=== PATIENT | male | born 1975 | race Caucasian/White ===

== ENCOUNTER 2017-08-21 19:45 | Emergency (ER) | payer BC ==
[~2017-08-21] VITALS: Ht 193 cm; Wt 87.4 kg
[~2017-08-21 19:45] MED LIST: AMOX500C3 PO; HYDR-4079 PO
[2017-08-21 19:50] VITALS: TEMP 36.6; Ht 193 cm; Wt 87.4 kg
--- NOTE | 2017-08-21 21:08 | DIAGNOSTIC IMAGING REPORT ---
RIGHT HAND MIN 3 VIEWS ROUTINE CLINICAL HISTORY: Right hand/second finger pain. COMPARISON: None. DISCUSSION: No acute fractures or dislocations are visualized. There is no erosive disease. There is an old healed fifth metacarpal fracture. IMPRESSION: Old fifth metacarpal fracture. No acute fractures. Electronically signed by: Dave Raya M.D. 08/21/2017 9:06 PM Dictated Date/Time: 08/21/2017 9:05 PM
[2017-08-21 21:32] VITALS: BP 135/95; PULSE 86; O2SAT 92
--- NOTE | 2017-08-22 01:08 | EMERGENCY ROOM VISIT NOTE ---
History First contact with patient: 21:11 Chief Complaint: FINGER PAIN Stated Complaint: PAIN RIGHT SECOND FINGER ON R HAND History of Present Illness The patient is a 41 year old male who presents to the Emergency Room with complaints of persistent right second finger pain. The patient reports that he has had this intermittent discomfort for the past 2 months. He has not followed up with his PCP or orthopedics. 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 He denies any known injury to the hand. He denies any loss of flexor or extensor function, except for chronic changes that he has had as a result of a surgery to his right forearm after sustaining a significant laceration, muscle and tendon injury that was repaired at [facility]. He rates his discomfort a 6 out of 10. The patient is [id number]. Review of Systems 10 system review was performed and was negative except for pertinent positives and negatives as indicated in history of present illness Past Medical/Surgical History Medical Problems: (1) No Known Active Medical Problems Medical Problems: (1) Chronic sinusitis (2) Kidney stones (3) Tobacco Use Disorder Surgical Problems: (1) History of orthopedic surgery Family History FH: cancer FH: hypertension FH: kidney disease FH: lung disease Social History Smoking Status: Never Smoker Alcohol Use: occasionally Marital Status: in relationship Housing Status: lives with significant other Occupation Status: employed Current/Historical Medications No Active Prescriptions or Reported Meds Physical Exam Vital Signs Date Time Temp Pulse Resp B/P (MAP) Pulse Ox O2 Delivery O2 Flow Rate FiO2 08/21/17 21:32 86 18 135/95 92 08/21/17 19:50 36.6 86 18 142/104 97 Room Air Pain Rating (0-10): 0 Physical Exam CONSTITUTIONAL: Healthy and well nourished. Alert and oriented X 3 with positive affect. HEENT: Normocephalic, atraumatic. Pupils equal, round and reactive. NECK: Full active range of motion without discomfort. MUSCULOSKELETAL: Examination of the right hand shows mild tenderness to palpation over the dorsal second MCP joint. No erythema noted. The patient is able to flex and extend the finger with full range of motion. He has no tenderness to palpation through the flexor surface, palm or wrist. No palpable masses noted or slowly. Capillary refill of the fingertip is less than 2 seconds. INTEGUMENTARY: No rash or other significant dermatologic conditions noted. NEUROLOGIC: Right index finger is sensory intact. Medical Decision & Procedures ER Provider Diagnostic Interpretation: My interpretation of right hand x-rays does not show any obvious fractures, dislocation or erosive changes of the second finger or MCP joint. An old fifth metacarpal fracture is noted. Radiologist report is as follows: RIGHT HAND MIN 3 VIEWS ROUTINE CLINICAL HISTORY: Right hand/second finger pain. COMPARISON: None. DISCUSSION: No acute fractures or dislocations are visualized. There is no erosive disease. There is an old healed fifth metacarpal fracture. IMPRESSION: Old fifth metacarpal fracture. No acute fractures. ED Course Patient history and physical exam were performed. Nurse's notes were reviewed. Vital signs were reviewed and were normal. X-rays of the right hand were also normal. A metal splint was applied to the finger, and the patient was encouraged to follow-up with [facility] for further reevaluation and management. He was encouraged to alternate ibuprofen and Tylenol as needed for pain, as well as intermittent application of ice. The patient voiced understanding of all discharge instructions, was happy with plan of care, and rated his pain a 4 out of 10 at the conclusion of my exam. Medical Decision Medication Reconcilliation Current Medication List: was personally reviewed by me Blood Pressure Screening Patient's blood pressure: Normal blood pressure Impression Primary Impression: Right index finger tendonitis Departure Information Dispostion Home / Self-Care Condition GOOD Prescriptions No Active Prescriptions or Reported Meds Referrals Caden Hwang M.D. Forms HOME CARE DOCUMENTATION FORM, IMPORTANT VISIT INFORMATION Patient Instructions My [facility] Additional Instructions Intermittently apply ice to the finger. Wear metal splint and/or faviola tape her second and third fingers together for support. Ibuprofen or Tylenol as needed for pain. Follow-up with [facility] for further reevaluation and management - call for an appointment.
== END 2017-08-21 21:33 | disposition home or self-care (01) ==
LOC: C.EDB 19:47 → C.EDD 21:33
DX: M77.9 Enthesopathy, unspecified (principal); F17.200 Nicotine dependence, unspecified, uncomplicated; J32.9 Chronic sinusitis, unspecified; Z87.442 Personal history of urinary calculi; Z82.49 Family history of ischemic heart disease and other diseases of the circulatory system

== ENCOUNTER 2018-02-10 22:20 | Emergency (ER) | payer BC ==
[~2018-02-10] VITALS: Ht 193 cm; Wt 90.5 kg
[2018-02-10 22:24] VITALS: TEMP 37; Ht 193 cm; Wt 90.5 kg
[2018-02-10] MEDS ORDERED: ACETAMINOPHEN 500 MG TAB PO STA (22:39)
--- NOTE | 2018-02-10 23:06 | DIAGNOSTIC IMAGING REPORT ---
HEAD CT NONCONTRAST CT DOSE: 537.48 mGy.cm HISTORY: head injury TECHNIQUE: Multiaxial CT images of the head were performed without the use of intravenous contrast. Automated exposure control was utilized for this study. A dose lowering technique was utilized adhering to the principles of ALARA. Comparison: None. Findings: The paranasal sinuses and mastoid air cells are clear. The calvarium and skull base are intact. The ventricles and sulci are within normal limits. There is no mass, hematoma, midline shift, or acute infarct. Impression: No acute intracranial abnormality. Electronically signed by: Judson Mcdonald M.D. 02/10/2018 11:05 PM Dictated Date/Time: 02/10/2018 10:57 PM
--- NOTE | 2018-02-11 00:28 | EMERGENCY ROOM VISIT NOTE ---
History Report prepared by Caridad: Lennie Calderón Under the Supervision of: Dr. Rush Soto D.O. 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 The patient presents to the ED by EMS. He was installing a swing in his bedroom when he was flung backwards. He fell back about 3 feet and hit his head on the floor. He did not lose consciousness. He notes headache, dizziness, and neck pain. He currently rates his discomfort as a 12/10 in severity. He denies having any medical problems. He admits to drinking some alcohol today. Source of History: patient Onset: OPERATIONS COORDINATOR Position: head Symptom Intensity: 12/10 Quality: other (injury) Timing: other (episodic) Associated Symptoms: + headache, + neck pain, No LOC Note: Pt reports dizziness. Review of Systems See HPI for pertinent positives & negatives. A total of 10 systems reviewed and were otherwise negative. Past Medical & Surgical Medical Problems: (1) Chronic sinusitis (2) Kidney stones (3) Tobacco Use Disorder Surgical Problems: (1) History of orthopedic surgery Family History FH: cancer FH: hypertension FH: kidney disease FH: lung disease Social History Smoking Status: Never Smoker Alcohol Use: occasionally Marital Status: in relationship Housing Status: lives with significant other Occupation Status: employed Current/Historical Medications No Active Prescriptions or Reported Meds Allergies Coded Allergies: Bee Venom (Verified Allergy, Unknown, ANAPHYLAXIS, 09/06/16) Physical Exam Vital Signs Date Time Temp Pulse Resp B/P (MAP) Pulse Ox O2 Delivery O2 Flow Rate FiO2 02/10/18 22:24 37.0 94 16 157/92 96 Room Air 02/10/18 22:24 91 Physical Exam CONSTITUTIONAL/VITAL SIGNS: Reviewed / noted above. GENERAL: Non-toxic in appearance. INTEGUMENTARY: Warm, dry, and [place]. HEAD: Normocephalic. EYES: without scleral icterus or trauma. ENT/OROPHARYNX: clear and moist. LYMPHADENOPATHY/NECK: Is supple without lymphadenopathy or meningismus. RESPIRATORY: Lungs clear and equal. CARDIOVASCULAR: Regular rate and rhythm. GI/ABDOMEN: Soft and nontender. No organomegaly or pulsatile mass. No rebound or guarding. Normal bowel sounds. EXTREMITIES: Warm and well perfused. BACK: No CVA tenderness. NEUROLOGICAL: Intact without focal deficits. PSYCHIATRIC: normal affect. MUSCULOSKELETAL: Normally developed with good muscle tone. Medical Decision & Procedures ER Provider Diagnostic Interpretation: Radiology results as stated below per my review and radiologist interpretation: HEAD CT NONCONTRAST CT DOSE: 537.48 mGy.cm HISTORY: head injury TECHNIQUE: Multiaxial CT images of the head were performed without the use of intravenous contrast. Automated exposure control was utilized for this study. A dose lowering technique was utilized adhering to the principles of ALARA. Comparison: None. Findings: The paranasal sinuses and mastoid air cells are clear. The calvarium and skull base are intact. The ventricles and sulci are within normal limits. There is no mass, hematoma, midline shift, or acute infarct. Impression: No acute intracranial abnormality. Electronically signed by: Judson Mcdonald M.D. 02/10/2018 11:05 PM Dictated Date/Time: 02/10/2018 10:57 PM Medications Administered Medications (Trade) Dose Ordered Sig/Jacobo Route Start Time Stop Time Status Last Admin Dose Admin Acetaminophen (Tylenol Tab) 1,000 mg NOW STAT PO 02/10/18 22:39 02/10/18 22:40 DC 02/10/18 23:05 1,000 MG ED Course 2235: Previous medical records were reviewed. The patient was evaluated in room C11B. A complete history and physical examination was performed. 2239: Acetaminophen 1000 mg PO. 0028: On reevaluation, the patient is resting comfortably. I discussed the results and findings with the patient. He verbalized agreement of the treatment plan. He was discharged home. Medical Decision Differential includes close head injury, intracranial bleed, facial trauma, cervical spine trauma, chest and thoracic trauma, abdominal and intra-abdominal trauma, spine neurologic trauma, extremity trauma. This is a 42-year-old male who presents to the ED with a chief complaint of head injury. The patient was hanging a "sex swing" in his bedroom when he pulled on it to see if it was secure. He states that it let loose and caused him to fall onto the ground striking his head. The patient has been drinking some alcohol tonight he denies any other significant symptoms. CT scan of the brain did not show acute process. The patient was told the results. He was given Tylenol p.o. He is felt to be stable for discharge. Head Trauma GCS Score: 15 Medication Reconcilliation Current Medication List: was personally reviewed by me Blood Pressure Screening Patient's blood pressure: Elevated blood pressure Blood pressure disposition: Elevated BP felt to be situational Impression Primary Impression: Head injury due to trauma Scribe Attestation The scribe's documentation has been prepared under my direction and personally reviewed by me in its entirety. I confirm that the note above accurately reflects all work, treatment, procedures, and medical decision making performed by me. Departure Information Dispostion Home / Self-Care Prescriptions No Active Prescriptions or Reported Meds Referrals No Doctor, Assigned (PCP) Patient Instructions ED Head Injury Closed, My [facility] Additional Instructions Follow-up with your doctor for further care and evaluation in 1-2 days if symptoms persist. Return to the emergency department for worsening or new symptoms or any concerns. You have been examined and treated today on an emergency basis only. This is not a substitute for, or an effort to provide, complete comprehensive medical care. It is impossible to recognize and treat all injuries or illnesses in a single emergency department visit. It is therefore important that you follow up closely with your doctor. Call as soon as possible for an appointment.
[2018-02-11 00:33] VITALS: BP 137/89; PULSE 88; O2SAT 96
== END 2018-02-11 00:34 | disposition home or self-care (01) ==
LOC: EDBD 22:20 → C.EDC 22:21
DX: S09.90XA Unspecified injury of head, initial encounter (principal); W18.39XA Other fall on same level, initial encounter; W22.8XXA Striking against or struck by other objects, initial encounter; Y92.003 Bedroom of unspecified non-institutional (private) residence as the place of occurrence of the external cause; Y99.8 Other external cause status; Y93.89 Activity, other specified; Z72.0 Tobacco use; J32.9 Chronic sinusitis, unspecified; Z87.442 Personal history of urinary calculi; Z82.49 Family history of ischemic heart disease and other diseases of the circulatory system; Z84.1 Family history of disorders of kidney and ureter; Z83.6 Family history of other diseases of the respiratory system; Z91.030 Bee allergy status